=== PATIENT | female | born 1990 | race Asian ===

== ENCOUNTER 2019-08-03 20:58 | Emergency (ER) | payer OTHER ==
[~2019-08-03] VITALS: Ht 160 cm; Wt 61.8 kg
[2019-08-03] MEDS ORDERED: NS 1,000 ML IV ONE (22:00)
[2019-08-03] MEDS ORDERED: ONDANSETRON 4MG/2ML VIAL (J2405) IV ONE (22:00)
[2019-08-03 22:17] LABS: BASO % 0.1 % (0.0-1.0); EOS # 0.1 10^3/uL (0.0-0.5); EOS % 0.6 % (0.0-3.0); HEMATOCRIT 44.1 % (36.0-47.0); LYMPH # 1.1 10^3/uL (1.5-5.0); MEAN CORPUSCULAR HEMOGLOBIN 29.8 pg (27.0-33.0); MEAN CORPUSCULAR VOLUME 87.5 fl (80.0-96.0); MONO # 0.7 10^3/uL (0.0-0.8); MONO % 4.8 % (0.0-5.0); NEUTROPHILS # 11.8 10^3/uL (1.5-8.5); NEUTROPHILS % 85.9 % (36.0-66.0); PLATELET COUNT, AUTOMATED 241 10^3/uL (150-450); RED BLOOD COUNT 5.04 10^6/uL (4.00-5.40); WHITE BLOOD COUNT 13.8 10^3/uL (4.0-10.0)
[2019-08-03 22:48] LABS: INFLUENZA A AMPLIFICATION NEGATIVE (NEGATIVE); INFLUENZA B AMPLIFICATION NEGATIVE (NEGATIVE)
[2019-08-03] MEDS ORDERED: PROMETHAZINE INJ 25 MG/ML VIAL (J2550) IV ONE (23:15)
[2019-08-04] MEDS ORDERED: ONDA8TAB8 PO (00:19)
[2019-08-04 00:55] VITALS: BP 104/58
== END 2019-08-04 00:56 | disposition home or self-care (01) ==
LOC: M ED 20:58
DX: A08.4 Viral intestinal infection, unspecified (principal)
CPT/HCPCS: 80047; 84702; 85025; 87502; 87880; 96374; 96375; 99284; J2405

== ENCOUNTER 2024-05-28 09:12 | Emergency (ER) | payer OTHER ==
[~2024-05-28] VITALS: Ht 160 cm; Wt 70.5 kg
[~2024-05-28 09:12] MED LIST: ONDA-284 PO
[2024-05-28] MEDS ORDERED: AMLO1TAB25 PO (09:29)
[2024-05-28] MEDS ORDERED: LOSA50TA28 PO (09:29)
[2024-05-28] MEDS ORDERED: BUPR150T12 PO (09:29)
[2024-05-28] MEDS: FAMOTIDINE 20MG/2ML VIAL IVP ONE (10:58)
[2024-05-28] MEDS: diphenhydrAMINE 50MG/ML VIAL IV ONE (10:58)
[2024-05-28] MEDS: methylPREDNISolone 125MG 2ML VIAL IV ONE (10:58)
[2024-05-28] MEDS ORDERED: PRED10TA2 PO (12:19)
[2024-05-28] MEDS ORDERED: FAMO10TA50 PO (12:19)
[2024-05-28 12:20] VITALS: BP 131/65; TEMP 98.9; O2SAT 100
== END 2024-05-28 12:43 | disposition home or self-care (01) ==
LOC: M ED 09:12
DX: T78.40XA Allergy, unspecified, initial encounter (principal); L50.9 Urticaria, unspecified; L29.9 Pruritus, unspecified; F32.A Depression, unspecified; Z88.8 Allergy status to other drugs, medicaments and biological substances; Z79.52 Long term (current) use of systemic steroids; Z79.899 Other long term (current) drug therapy
CPT/HCPCS: 94760; 96374; 99284; J1200; J2919; S0028

== ENCOUNTER 2024-05-30 21:26 | Emergency (ER) | payer OTHER ==
[~2024-05-30] VITALS: Ht 160 cm; Wt 71.4 kg
[~2024-05-30 21:26] MED LIST changes: +AMLO1TAB25 PO; +BUPR150T12 PO; +FAMO10TA50 PO; +LOSA50TA28 PO; +PRED10TA2 PO
[2024-05-30] MEDS: methylPREDNISolone 125MG 2ML VIAL IV ONE (22:31)
[2024-05-30] MEDS: FAMOTIDINE 20MG/2ML VIAL IVP ONE (22:32)
[2024-05-30 22:46] LABS: BASO % 0.1 % (0.0-1.0); HEMOGLOBIN 13.9 g/dl (12.0-15.5); LYMPH # 2.1 10^3/uL (1.5-5.0); MEAN CORPUSCULAR HEMOGLOBIN 29.4 pg (27.0-33.0); MEAN CORPUSCULAR HGB CONC 34.8 g/dl (32.0-36.5); MEAN CORPUSCULAR VOLUME 84.6 fl (80.0-96.0); MONO # 0.3 10^3/uL (0.0-0.8); NEUTROPHILS # 8.1 10^3/uL (1.5-8.5); NEUTROPHILS % 76.1 % (36.0-66.0); PLATELET COUNT, AUTOMATED 303 10^3/uL (150-450); RED BLOOD COUNT 4.73 10^6/uL (4.00-5.40); WHITE BLOOD COUNT 10.7 10^3/uL (4.0-10.0)
[2024-05-30 23:05] LABS: ALBUMIN 3.7 G/DL (3.2-5.2); ALKALINE PHOSPHATASE 42 U/L (35-104); ALT/SGPT 34 U/L (7.0-40); AST/SGOT 17 U/L (<34); BILIRUBIN,DIRECT 0.1 MG/DL (<0.4); BILIRUBIN,TOTAL 0.4 MG/DL (0.3-1.2); BLOOD UREA NITROGEN 12 MG/DL (9-23); CALCIUM LEVEL 8.8 MG/DL (8.5-10.1); CARBON DIOXIDE LEVEL 26 MMOL/L (20-31); CHLORIDE LEVEL 104 MMOL/L (98-107); CREATININE FOR GFR 0.63 MG/DL (0.55-1.30); GLOMERULAR FILTRATION RATE > 60.0 (>60); GLUCOSE, FASTING 168 MG/DL (60-100); POTASSIUM SERUM 3.7 MMOL/L (3.5-5.1); SODIUM LEVEL 139 MMOL/L (136-145)
[2024-05-30] MEDS: diphenhydrAMINE 50MG/ML VIAL IV STA (23:29)
[2024-05-31 00:56] VITALS: BP 128/78; TEMP 98.2; O2SAT 94
== END 2024-05-31 01:20 | disposition home or self-care (01) ==
LOC: M ED 21:26
DX: T78.40XA Allergy, unspecified, initial encounter (principal); R21 Rash and other nonspecific skin eruption; I10 Essential (primary) hypertension; F32.A Depression, unspecified; Z88.8 Allergy status to other drugs, medicaments and biological substances; Z79.52 Long term (current) use of systemic steroids; Z79.899 Other long term (current) drug therapy
CPT/HCPCS: 71046; 80048; 80076; 85025; 87486; 87581; 87633; 87798; 93005; 93041; 94760; 96374; 96375; 99285; J1200; J2919; S0028